=== PATIENT | male | born 1955 | race Caucasian/White ===

== ENCOUNTER 2016-10-23 20:55 | Emergency (ER) | payer BC ==
[~2016-10-23] VITALS: Ht 172.7 cm; Wt 68.0 kg
[2016-10-23 21:08] VITALS: Ht 172.7 cm; Wt 68.0 kg
--- NOTE | 2016-10-23 21:35 | ERD ---
ER Documentation Chief Complaint Date/Time DATE: 10/23/16 TIME: 21:24 Chief Complaint right eye pain since 10am today. puss and swelling noted HPI 61-year-old male who presented emergency department for nontraumatic bilateral eye pain, itchiness, redness, with greenish discharge in the inner canthus that started at 10 AM today. Denies foreign body sensation to his eye. Stated that she has a throat pain yesterday. Denies any eye injury. Wears reading glasses. Denies headache, loss of consciousness, dizziness, photophobia, facial pain, ear pain, throat pain, difficulty swallowing, neck pain, shoulder pain, chest pain, cough, hemoptysis, abdominal pain, back pain, loss of appetite, nausea, vomiting, hematochezia, diarrhea, constipation, urinary symptoms, bladder and bowel incontinences, extremity weakness, extremity tenderness, numbness or tingling sensation, difficulty walking, recent travel, recent exposure to illness, recent antibiotic use in the last 3 months, fever, chills. Allergy: No known drug allergies. PMH: Denies. Medications: Denies. Surgery: Denies. Family history: Denies. Primary Social History: Works as a mental health worker. Denies smoking, use of alcohol, use of illegal drugs. ROS All systems reviewed and are negative except as per history of present illness. Medications Home Meds Active Scripts Erythromycin (Erythromycin Opth) 3.5 Gm Oint..gm., 1 APPLIC BOTH EYES QID for 7 Days, #1 TUB Prov:CORRINEKARTHIKNICOLASAAR F 10/23/16 Amoxicillin/Potassium Clav (Amox-Clav 875-125 mg Tablet) 875-125 mg Tab, 1 TAB PO BID for 7 Days, #14 TAB Prov:RENATA PETERS F 10/23/16 Allergies Allergies: Coded Allergies: No Known Allergy (Unverified , 10/23/16) PMhx/Soc Medical and Surgical Hx: pt denies Medical Hx, pt denies Surgical Hx History of Surgery: No (DENIES MEDICAL AND SURGICAL HX.) Hx Alcohol Use: Yes (SOCIALLY) Hx Substance Use: No Hx Tobacco Use: No Smoking Status: Never smoker Physical Exam Vitals Vital Signs Date Time Temp Pulse Resp B/P Pulse Ox O2 Delivery O2 Flow Rate FiO2 10/23/16 21:08 99.0 69 18 113/62 97 Physical Exam CONSTITUTIONAL: Well-appearing; well-nourished; in no apparent distress. HEAD: Normocephalic; atraumatic. EYES: Left eye: Conjunctival erythema, sclera non-icteric, EOM intact. PERRL. Extraocular movement of his eye is within normal limits. No pain in eye movement. Right eye: Conjunctival erythema, sclera non-icteric, EOM intact. PERRL. Extraocular movement of his eyes within normal limits. No pain on eye movement. Purulent discharge noted to this eye greater than the left. Ears: Hearing intact. EACs clear, TMs non-bulging, non-inflamed, translucent & mobile, ossicles normal appearance, No obstructions, no erythema, no discharges Nose: No obstructions. No polyps. No external lesions. Mucosa non-inflamed. No external lesions, septum and turbinates normal. No rhinorrhea. No discharges. Frontal sinus is non-tender to palpation. Maxillary sinus is non-tender to palpation. MOUTH: Moist mucous membranes, no lesion, no obstructions, no vesicles, no thrush, patent airway Throat: Uvula in midline. Right tonsil is +1 with no erythema, no exudate. Left tonsil is +1 with no erythema, no exudate. Tolerating secretions well. Good gag reflex. Patent airway. Neck: Supple, without lesions, bruits, or adenopathy. No mass. Thyroid non- enlarged and non-tender to palpation. CHEST: Symmetrical chest. Respirations even and not labored. No retractions noted. CARDIOVASCULAR: Normal S1, S2. RRR. No murmurs, gallops. RESPIRATORY: Normal chest excursion with respiration; breath sounds clear and equal bilaterally; no wheezes, rhonchi, or rales. Breathing even and unlabored. Speaking in clear, full, and complete sentences w/ ease. ABDOMEN: Normal bowel sounds normal. Soft, round, non-distended, non-guarding, no tenderness, no rebound, no organomegaly, no masses, no pulsating abdominal mass. No hernia. No peritoneal signs. : No CVA tenderness. BACK: Symmetrical shoulder. Spine is midline without deformity, tenderness. No evidence of trauma or deformity. PELVIS: Stable pelvis. No evidence of trauma or deformity. MUSCULOSKELETAL: Normal gait and station. No misalignment, asymmetry, crepitation, defects, tenderness, masses, effusions, decreased range of motion, instability, atrophy or abnormal strength or tone in the head, neck, spine, ribs , pelvis or extremities. No calf tenderness. NEUROVASCULAR: Distal pulses are present. Pedal pulse are present, equal, and normal. Capillary refills are < 2 seconds. NEUROLOGIC: Alert and oriented x4. Speaks full and clear sentences. Cranial Nerves II-XII normal. Sensation to pain, touch, and proprioception normal. Grossly unremarkable. No neurologic deficits. Romberg test is negative. PSYCHOLOGICAL: The patients mood and manner are appropriate. No hallucinations , delusions. Not SI. Not HI. Has the capacity to decide for self SKIN: Normal for age and ethnicity; warm; dry; good turgor; no apparent lesions or exudates. No rashes, hives, discoloration. Intact. Procedures/MDM Examination: Please see physical examination. Disease process, medical treatment was explained to the patient and family member. They verbalized understanding and agreed with the diagnostic tests, medical treatment, and follow-up care. ED visual acuity: Reviewed. Re-evaluation: Denies headache, dizziness, blurry vision, neck pain, shoulder pain, chest pain, back pain, abdominal pain, nausea, vomiting. No episode of emesis in the emergency department. Alert and oriented 4. Speaks full and clear sentences. Respirations even and unlabored. Lung sounds clear to auscultation. Active bowel sounds. Ambulatory with steady gait. No neurovascular deficits. No neurological deficits. Observed reading and using his cell phone. Denies any foreign body sensation to his bilateral eyes. Stated that he feels much better sign. Consultation: None. Differential diagnosis: Eye trauma versus orbital cellulitis versus periorbital cellulitis versus periorbital edema versus bacterial conjunctivitis versus viral conjunctivitis versus sinusitis versus strep throat versus pharyngitis Medical decision makin-year-old male who presented emergency department for nontraumatic bilateral eye pain, itchiness, redness, with greenish discharge in the inner canthus that started at 10 AM today. Denies any foreign body sensation to his eye. Stated that she has a throat pain yesterday. Denies any eye injury. Wears reading glasses. Patient's complaint, patient's history about his complaint, my physical findings, my reevaluation are consistent with my final diagnosis of bacterial conjunctivitis and pharyngitis. Medications prescribed are the following: Erythromycin ophthalmic ointment. Augmentin. Patient and family member are made aware of the side effects and adverse reactions of the medications prescribed. Instructed on when to seek emergent and medical attention in case allergic/anaphylactic reactions or severe side effects and or adverse reactions to medications. Patient and family member verbalized understanding. Patient instructed Instructed to follow-up with his PCP in 24-48 hours. PCP to refer patient to equipment service lead if his symptoms get worse. Instructed to Call 911 for chest pain, shortness of breath. Advised to come back here in ED as soon as possible for severity of symptoms which includes but not limited to: any new symptoms; shortness of breath/difficulty of breathing; cardiovascular changes; severe gastrointestinal symptoms; signs and symptoms of bleeding and or infection; signs of compartment syndrome/neurovascular changes; neurological changes/deficits. Patient and family member verbalized understanding. Upon discharge, patient is alert and oriented x 4, speaks full and clear sentences, denies pain, has no neurological deficits, has no neurovascular deficits, difficulty of breathing. Breathing even and unlabored. Lung sounds are clear to auscultation. Not in distress. Appears comfortable. Ambulatory with steady gait. Appears satisfied with care provided here in ED. Departure Diagnosis: Primary Impression: Bacterial conjunctivitis of both eyes Additional Impression: Pharyngitis Condition: Stable Additional Instructions: Instructed to follow-up with his PCP in 24-48 hours. PCP to refer patient to equipment service lead if his symptoms get worse. Instructed to Call 911 for chest pain, shortness of breath. Advised to come back here in ED as soon as possible for severity of symptoms which includes but not limited to: any new symptoms; shortness of breath/difficulty of breathing; cardiovascular changes; severe gastrointestinal symptoms; signs and symptoms of bleeding and or infection; signs of compartment syndrome/neurovascular changes; neurological changes/deficits. Patient and family member verbalized understanding. RENATA PETERS Oct 23, 2016 21:35
[2016-10-23] MEDS ORDERED: AMOX1TAB10 PO (21:36)
[2016-10-23] MEDS ORDERED: ERYT1OIN6 BOTH EYES (21:38)
== END 2016-10-23 23:04 | disposition home or self-care (01) ==
LOC: FTE 20:55
DX: H10.023 Other mucopurulent conjunctivitis, bilateral (principal); J02.9 Acute pharyngitis, unspecified
CPT/HCPCS: 99284